=== PATIENT | female | born 1980 | race Caucasian/White ===

== ENCOUNTER 2016-06-24 11:39 | Emergency (ER) | payer MEDICAID ==
[~2016-06-24] VITALS: Ht 175.3 cm; Wt 81.0 kg
[2016-06-24 14:20] VITALS: BP 112/71
== END 2016-06-24 14:22 | disposition home or self-care (01) ==
LOC: ED 12:25
DX: S16.1XXA Strain of muscle, fascia and tendon at neck level, initial encounter (principal); X58.XXXA Exposure to other specified factors, initial encounter; Y93.89 Activity, other specified; Y92.89 Other specified places as the place of occurrence of the external cause; Y99.9 Unspecified external cause status
CPT/HCPCS: 72050; 99284

== ENCOUNTER 2016-12-09 10:01 | Emergency (ER) | payer MEDICAID ==
[~2016-12-09] VITALS: Ht 175.3 cm; Wt 85.0 kg
[2016-12-09 10:11] VITALS: BP 135/87
[2016-12-09] MEDS ORDERED: DIAZEPAM 5 MG TABLET ONE (11:00)
[2016-12-09] MEDS ORDERED: KETOROLAC 30 MG/1 ML ONE (11:00)
[2016-12-09] MEDS ORDERED: KETOROLAC 30 MG/1 ML IM ONE (11:00)
[2016-12-09] MEDS ORDERED: DIAZEPAM 5 MG TABLET PO ONE (11:00)
== END 2016-12-09 12:31 | disposition home or self-care (01) ==
LOC: ED 12:25
DX: S39.012A Strain of muscle, fascia and tendon of lower back, initial encounter (principal); X58.XXXA Exposure to other specified factors, initial encounter; Y93.89 Activity, other specified; Y92.89 Other specified places as the place of occurrence of the external cause; Y99.8 Other external cause status
CPT/HCPCS: 72110; 96372; 99284; J1885